=== PATIENT | male | born 1990 | race American Indian/Alaskan Native ===

== ENCOUNTER 2016-07-27 09:28 | Emergency (ER) | payer BC ==
[2016-07-27 09:34] VITALS: BP 120/71
--- NOTE | 2016-07-27 12:06 | Emergency Department Report ---
- General Chief complaint: Skin/Abscess/Foreign Body Stated complaint: ABSCESS UNDER RT ARM Time Seen by Provider: 07/27/16 11:56 Source: patient Mode of arrival: Ambulatory Limitations: No Limitations - History of Present Illness Initial comments: Patient here reported that he has abscess under his right armpit for 2 days. He said he's been applying heat compresses without any relief. Denies any fever or chills. He thought similar incident on the left arm. In the past. Denies any drainage from site. Reports pain is 8 out of 10. MD complaint: abscess/boil Onset/Timin -: days(s) Tetanus Up to Date: yes Location: RUE (abscess to armpit ) Severity: severe Severity scale (0 -10): 8 Quality: other (sore) Consistency: intermittent Improves with: none Context: other Associated symptoms: denies other symptoms Treatments Prior to Arrival: none - Related Data Previous Rx's Medication Instructions Recorded Last Taken Type HYDROcodone/APAP 5-325 [Thayer 1 each PO Q6HR PRN #12 tablet 07/27/16 Unknown Rx 5/325] Sulfamethoxazole/Trimethoprim 1 each PO BID #20 tablet 07/27/16 Unknown Rx [Bactrim DS TAB] Allergies Allergy/AdvReac Type Severity Reaction Status Date / Time No Known Allergies Allergy Unverified 07/27/16 09:35 Abscess Boil HPI - HPI Chief Complaint: Skin/Abscess/Foreign Body Stated Complaint: ABSCESS UNDER RT ARM Time Seen by Provider: 07/27/16 11:56 Home Medications: Previous Rx's Medication Instructions Recorded Last Taken Type HYDROcodone/APAP 5-325 [Thayer 1 each PO Q6HR PRN #12 tablet 07/27/16 Unknown Rx 5/325] Sulfamethoxazole/Trimethoprim 1 each PO BID #20 tablet 07/27/16 Unknown Rx [Bactrim DS TAB] Allergies/Adverse Reactions: Allergies Allergy/AdvReac Type Severity Reaction Status Date / Time No Known Allergies Allergy Unverified 07/27/16 09:35 ED Review of Systems ROS: Stated complaint: ABSCESS UNDER RT ARM Other details as noted in HPI Comment: All other systems reviewed and negative Constitutional: denies: chills, fever ENT: denies: ear pain, throat pain, congestion Respiratory: no symptoms reported Cardiovascular: denies: chest pain, palpitations, edema, syncope Gastrointestinal: denies: nausea, vomiting Genitourinary: denies: urgency, dysuria, frequency, hematuria Skin: denies: rash Neurological: denies: headache, weakness, numbness, paresthesias, confusion, vertigo ED Past Medical Hx - Past Medical History Previous Medical History?: No - Surgical History Past Surgical History?: No - Family History Family history: no significant - Social History Smoking Status: Never Smoker Substance Use Type: None - Medications Home Medications: Home Medications Medication Instructions Recorded Confirmed Last Taken Type HYDROcodone/APAP 5-325 [Thayer 1 each PO Q6HR PRN #12 tablet 07/27/16 Unknown Rx 5/325] Sulfamethoxazole/Trimethoprim 1 each PO BID #20 tablet 07/27/16 Unknown Rx [Bactrim DS TAB] ED Physical Exam - General Limitations: No Limitations General appearance: alert, in no apparent distress - Head Head exam: Present: atraumatic, normocephalic, normal inspection - Neck Neck exam: Present: normal inspection, full ROM. Absent: tenderness, meningismus, lymphadenopathy - Respiratory Respiratory exam: Present: normal lung sounds bilaterally. Absent: respiratory distress, chest wall tenderness - Cardiovascular Cardiovascular Exam: Present: regular rate, normal rhythm, normal heart sounds - Extremities Exam Extremities exam: Present: normal inspection, full ROM, normal capillary refill. Absent: tenderness, pedal edema, joint swelling, calf tenderness - Back Exam Back exam: Present: normal inspection, full ROM. Absent: tenderness, CVA tenderness (R), CVA tenderness (L), muscle spasm, paraspinal tenderness, vertebral tenderness, rash noted - Neurological Exam Neurological exam: Present: alert, oriented X3, normal gait, reflexes normal. Absent: motor sensory deficit - Psychiatric Psychiatric exam: Present: normal affect, normal mood - Skin Skin exam: Present: warm, dry, normal color - Expanded Skin Exam Expanded Type of lesion: Present: abscess Distribution of rash: RUE Description of rash: Present: tenderness, erythematous, indurated. Absent: discharge, fluctuant ED Course Vital Signs 07/27/16 09:30 Temperature 98.8 F Pulse Rate 86 Respiratory 16 Rate Blood Pressure 120/71 O2 Sat by Pulse 97 Oximetry - Reevaluation(s) Reevaluation #1: 07/27/16 12:35 stable ED course ED Medical Decision Making - Medical Decision Making ED course: PT here complaining of abscess to right axilla. PT found to have Hidradenitis. Discussed the patient diagnosis and treatment plan and that he will need to follow-up with taxation consultant. Patient discharged home with prescription for Thayer and Bactrim DS. Critical care attestation.: If time is entered above; I have spent that time in minutes in the direct care of this critically ill patient, excluding procedure time. ED Disposition Clinical Impression: Hidradenitis axillaris Disposition: DISCHARGED TO HOME OR SELFCARE Is pt being admited?: No Does the pt Need Aspirin: No Condition: Stable Instructions: Abscess (ED) Additional Instructions: Apply warm compresses to affected area 3-4 times a day Prescriptions: HYDROcodone/APAP 5-325 [Thayer 5/325] 1 each PO Q6HR PRN #12 tablet PRN Reason: Pain Sulfamethoxazole/Trimethoprim [Bactrim DS TAB] 1 each PO BID #20 tablet Referrals: PRIMARY CARE, [Primary Care Provider] - 3-5 Days Forms: Work/School Release Form(ED), Accompanied Note
== END 2016-07-27 12:50 | disposition home or self-care (01) ==
LOC: ED 09:28
DX: L73.2 Hidradenitis suppurativa (principal)
CPT/HCPCS: 99282